=== PATIENT | female | born 1955 | race Caucasian/White ===

== ENCOUNTER 2016-07-13 07:00 | Day surgery (SDC) | payer OTHER ==
[~2016-07-13] VITALS: Ht 157.5 cm; Wt 58.0 kg
[~2016-07-13 07:00] MED LIST: 0.9% Sodium Chloride 1,000 ML IV SCH; CLOB15GE TP; KEN25CR EXT; Sodium Chloride LOK Flush 10 mL Syringe IV PRN; fentaNYL-PF 50 mCg/mL 2 mL Inj IVPUSH PRN
[2016-07-13 07:33] VITALS: BP 119/66; PULSE 79; RESP 16; O2SAT 99
[2016-07-13 08:32] VITALS: BP 102/54; PULSE 69; RESP 14; O2SAT 99
[2016-07-13 08:47] VITALS: BP 98/56; PULSE 59; RESP 14; O2SAT 96
[2016-07-13 08:54] VITALS: BP 105/64; PULSE 66; RESP 14; O2SAT 99
--- NOTE | 2016-07-13 13:32 | ENDO ---
[address] [address] ENDOSCOPY PROCEDURE PATIENT: MILAN SCHAFFER : 1955 MR#: [id number] ADMIT: 07/13/2016 JOB ID: [id number] DATE OF SERVICE: 07/13/2016 TYPE OF OPERATION: Colonoscopy with snare polypectomy and biopsy. PREOPERATIVE DIAGNOSIS(ES): History of colon polyps. POSTOPERATIVE DIAGNOSIS(ES): Abnormal mucosa in the rectum of approximately 1 cm, status post hot snare polypectomy and biopsy. ANESTHESIA: Fentanyl 100 mcg and Versed 3 mg IV administered. COMPLICATIONS: None. BLOOD LOSS: Minimal. DESCRIPTION OF PROCEDURE: After risks and benefits were explained to the patient, informed consent was obtained. After anesthesia administered, colonoscope was then inserted per rectum to cecum. Mucosa carefully examined. Prep of the patient was excellent. After procedure was done, the scope withdrawn and procedure terminated. FINDINGS: Upon inspection of the anus, no masses, hemorrhoids, ulcers, or fissures that were seen. Throughout the entire examination, there was abnormal mucosa that was seen in the rectum which was removed by hot snare polypectomy and biopsy. Retroflexion was normal. IMPRESSIONS: Abnormal mucosa in the rectum, removed by hot snare polypectomy, and biopsy. RECOMMENDATION: Await pathology results. Follow up in GI clinic as needed.
--- NOTE | 2016-07-16 14:19 | PATH ---
SURGICAL PATHOLOGY Attending Physician:Ronald Sanders MD CASE STATUS: Signed Out PATIENT NAME: MILAN SCHAFFER PID: [id number] : 1955 DATE COLLECTED:07/13/2016 16:16 SPECIMEN: Rectum, Biopsy CLINICAL HISTORY: 1). ABNORMAL MUCOSA RECTUM BIOPSY FINAL DIAGNOSIS: 1.ABNORMAL MUCOSA, RECTUM BIOPSY: TRADITIONAL SERRATED ADENOMA. ICD10 CODE D12.8 GROSS DESCRIPTION: The specimen is received in one formalin filled container labeled with the patient's name, sublabeled "abnormal mucosa rectum" and consists of multiple portions of tissue which aggregate to 1.2 x 0.6 x 0.3 CM the specimen is entirely submitted in one cassette. 07/13/2016 DAC MICRO DESCRIPTION: See diagnosis. ICD-9 CODES: CPT CODES: 1: 11545 Electronically Signed Out Liliana Almonte MD [facility] [address], [place] [address] Technical component performed at [facility], [address] [place] [address] Ave[address], [place], [address]
== END 2016-07-13 23:59 | disposition home or self-care (01) ==
LOC: END 07:00
PROVIDERS: ATTEND Internal Medicine Gastroenterology
DX: Z12.11 Encounter for screening for malignant neoplasm of colon (principal); D12.8 Benign neoplasm of rectum; Z86.010 Personal history of colon polyps
CPT/HCPCS: 45380; 99153; G0500; J2250; J3010; J7030